=== PATIENT | female | born 1985 | race Caucasian/White ===

== ENCOUNTER 2017-11-08 19:57 | Emergency (ER) | payer MEDICAID ==
[2017-11-08] MEDS: ONDANSETRON 4 MG INJ IV (21:00)
[2017-11-08] MEDS: SOD CHLORIDE 0.9% 1,000 ML IV (21:00)
[2017-11-08] MEDS: FAMOTIDINE 20 MG INJ IV (21:01)
[2017-11-08] MEDS: DIPHENHYDRAMINE 50 MG INJ IV (21:01)
[2017-11-08] MEDS: METHYLPREDNISOLONE 125 MG INJ IV (21:01)
== END 2017-11-09 02:30 | disposition home or self-care (01) ==
LOC: FTE 11-09 02:30
DX: L29.9 Pruritus, unspecified (principal); T39.315A Adverse effect of propionic acid derivatives, initial encounter
CPT/HCPCS: 96374; 96375; 99284-25

== ENCOUNTER 2017-12-11 09:06 | Emergency (ER) | payer MEDICAID ==
[2017-12-11] MEDS: ACETAMINOPHEN 500 MG TAB PO (09:27)
== END 2017-12-11 09:48 | disposition home or self-care (01) ==
LOC: FTE 09:06
DX: J02.9 Acute pharyngitis, unspecified (principal)
CPT/HCPCS: 99283; Z7502

== ENCOUNTER 2018-07-23 19:36 | Emergency (ER) | payer MEDICAID ==
[2018-07-23] MEDS: DIPHENHYDRAMINE 50 MG INJ IV (21:09)
[2018-07-23] MEDS: METOCLOPRAMIDE 10 MG INJ IV (21:09)
[2018-07-23] MEDS: SOD CHLORIDE 0.9% 1,000 ML IV (21:09)
[2018-07-23] MEDS: KETOROLAC 30 MG INJ IV (21:12)
[2018-07-23 21:18] LABS: ADD MAN DIFF? NO
[2018-07-23 21:19] LABS: WHITE BLOOD COUNT 10.2 10^3/ul (4.8-10.8)
[2018-07-23 21:19] LABS: BASOPHIL # 0.1 10^3/ul (0.0-0.1); BASOPHILS % 0.8 % (0.0-2.0); EOSINOPHILS # 0.1 10^3/ul (0.0-0.5); EOSINOPHILS % 1.3 % (0.0-7.0); HEMATOCRIT 38.7 % (37.0-47.0); HEMOGLOBIN 12.7 g/dl (12.0-16.0); LYMPHOCYTES # 3.6 10^3/ul (0.8-2.9); LYMPHOCYTES % 35.5 % (15.0-51.0); MEAN CORPUSCULAR HEMOGLOBIN 27.4 pg (29.0-33.0); MEAN CORPUSCULAR HGB CONC 32.8 g/dl (32.0-37.0); MEAN CORPUSCULAR VOLUME 83.4 fl (82.0-101.0); MEAN PLATELET VOLUME 9.5 fl (7.4-10.4); MONOCYTE # 1.1 10^3/ul (0.3-0.9); MONOCYTES % 10.5 % (0.0-11.0); NEUTROPHIL # 5.2 10^3/ul (1.6-7.5); NEUTROPHILS % 51.6 % (39.0-77.0); PLATELET COUNT 432 10^3/UL (140-415); RED BLOOD COUNT 4.64 10^6/ul (4.20-5.40); RED CELL DISTRIBUTION WIDTH 14.4 % (11.5-14.5)
[2018-07-23 21:40] LABS: INR 0.85; PARTIAL THROMBOPLASTIN TIME 26.9 Sec (23.0-35.0); PROTIME 11.7 Sec (11.9-14.9); PT RATIO 0.9
[2018-07-23 21:49] LABS: ANION GAP 11 (5-13); BLOOD UREA NITROGEN 17 mg/dl (7-20); CALCIUM 9.6 mg/dl (8.4-10.2); CARBON DIOXIDE 29 mmol/L (21-31); CHLORIDE 101 mmol/L (97-110); CREATININE 0.68 mg/dl (0.44-1.00); Estimated GFR > 60 mL/min (>60); GLUCOSE 97 mg/dl (70-220); POTASSIUM 4.4 mmol/L (3.5-5.1); SODIUM 141 mmol/L (135-144)
== END 2018-07-23 22:53 | disposition home or self-care (01) ==
LOC: FTE 19:36
DX: R51 Headache (principal)
CPT/HCPCS: 36415; 70450; 80048; 81025; 85025; 85610; 85730; 96361; 96374; 96375; 99285-25

== ENCOUNTER 2018-10-18 14:08 | Emergency (ER) | payer SELFPAY, MEDICAID | END 2018-10-18 15:00 | disposition home or self-care (01) | LOC: FTE 15:00 | DX: J32.9 Chronic sinusitis, unspecified (principal) | CPT/HCPCS: 99283 ==